=== PATIENT | male | born 1975 ===

== ENCOUNTER 2018-10-30 18:48 | Emergency (ER) | payer OTHER ==
[2018-10-30 19:04] VITALS: BP 121/73; TEMP 99; BMI 25.8
--- NOTE | 2018-10-30 19:28 | PDOC ---
History of Present Illness - General Chief Complaint: Pain Stated Complaint: ABD/PAIN/CHEST PAIN Time Seen by Provider: 10/30/18 19:26 History Source: Patient Exam Limitations: No Limitations - History of Present Illness Initial Comments: 10/30/18 19:59 Khalif Martinez is a 43M with PMH pre-DM presenting with abdominal pain radiating to L chest. Patient has had 4 days of diarrhea 10x per day with intermittent periumbilical abdominal pain he describes as a sharp squeezing pressure across belly towards the umbilicus that has gradually gotten worse. Starting yesterday pain radiated from umbilicus to L chest and pain level has sharply increased. Has no clear trigger for pain, happens randomly, has tried seltzer water, Motrin, Pepto Bismol for pain but has not improved. Denies N/V, no other chest pain, palpitations, SOB, urinary sx, headache, dizziness, weakness, numbness/ tingling. Diarrhea is liquid stool, NBNB. R-sided temporal headache. Denies cardiac history, family history of cardiac history. PMH pre-DM on 500mg metformin daily. Denies smoking, alcohol use, all illegal drug use. No abdominal surgeries. NKDA. 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 Past History - Past Medical History Allergies/Adverse Reactions: Allergies Allergy/AdvReac Type Severity Reaction Status Date / Time No Known Allergies Allergy Verified 10/30/18 19:04 Home Medications: Ambulatory Orders Amox-Tr/K Cl [Augmentin - 875Mg Tablet] 1 tab PO BID 7 Days #14 tablet 10/30/18 Ibuprofen [Advil -] 400 mg PO TID 10/30/18 Metformin HCl [Glucophage] 500 mg PO DAILY 10/30/18 COPD: No - Suicide/Smoking/Psychosocial Hx Smoking History: Never smoked Review of Systems - Review of Systems Able to Perform ROS?: Yes Is the patient limited Mongolian proficient: No Constitutional: No: Chills, Fever HEENTM: No: Symptoms Reported Respiratory: Yes: Cough (2 months). No: Shortness of Breath Cardiac (ROS): No: Chest Pain, Edema, Palpitations, Syncope ABD/GI: Yes: See HPI, Diarrhea, Other (abdominal pain). No: Constipated, Nausea , Vomiting : No: Burning, Dysuria, Discharge, Frequency, Flank Pain, Hematuria, Incontinence Musculoskeletal: Yes: Back Pain (20 year chronic disc issue) Integumentary: No: Symptoms Reported Neurological: Yes: Headache. No: Numbness, Tingling Endocrine: No: Symptoms Reported Hematologic/Lymphatic: No: Symptoms Reported All Other Systems: Reviewed and Negative *Physical Exam - Vital Signs Last Vital Signs Temp Pulse Resp BP Pulse Ox 99.0 F 95 H 18 121/73 96 10/30/18 19:00 10/30/18 19:00 10/30/18 19:00 10/30/18 19:00 10/30/18 19:00 - Physical Exam General Appearance: Yes: Nourished, Appropriately Dressed, Thin. No: Apparent Distress HEENT: positive: EOMI, PEPPER, Normal Voice, Symmetrical, Pharynx Normal. negative: Scleral Icterus (R), Scleral Icterus (L), Muffled/Hoarse voice, Pharyngeal Erythema, Tonsillar Exudate, Tonsillar Erythema, Rhinorrhea, Excessive drooling Neck: positive: Normal Thyroid, Rigid, Supple. negative: Tender, Lymphadenopathy (R), Lymphadenopathy (L) Respiratory/Chest: positive: Lungs Clear, Normal Breath Sounds. negative: Respiratory Distress, Accessory Muscle Use, Crackles, Rales, Rhonchi Cardiovascular: positive: Regular Rhythm, Regular Rate. negative: Edema, Murmur Gastrointestinal/Abdominal: positive: Normal Bowel Sounds, Flat, Soft. negative : Tender, Organomegaly, Pulsatile Mass, Guarding, Rebound Musculoskeletal: positive: Normal Inspection. negative: CVA Tenderness Extremity: positive: Normal Capillary Refill, Normal Inspection, Normal Range of Motion. negative: Tender Integumentary: positive: Normal Color Neurologic: positive: Fully Oriented, Alert, Normal Mood/Affect, Normal Response ED Treatment Course - LABORATORY CBC & Chemistry Diagram: 10/30/18 19:38 10/30/18 19:38 Medical Decision Making - Medical Decision Making 10/30/18 19:59 Khalif Martinez is a 43M with PMH pre-DM presenting with abdominal pain radiating to L chest. Patient presentation concerning for cardiac etiology vs. pancreatitis vs. AAA vs. gastroenteritis vs. renal stone. Given diarrhea likely gastroenteritis, but radiation to L chest concerning for OK vs. AAA. Will evaluate for chest pain/epigastric pain via: CMP CBC CP ECG Lipase UA/UC CXR Giving 1L NS and maalox, famotidine, protonix. 10/30/18 21:34 CXR shows no signs of PNA or PTX. UA negative for UTI, no blood. CBC WNL. Problem with CMP machine, CMP and lipase pending. Patient feels grossly well. Discussed discharge home with Augmentin, patient amenable to this plan. Pending labs and then discharge. 10/30/18 21:51 CHEM WNL. Good to discharge home. 10/30/18 22:50 Patient not feeling well, gave 2mg morphine and improved significantly. Did rapid strep which was negative since patient reported throat pain. Discharged home after this. *DC/Admit/Observation/Transfer Diagnosis at time of Disposition: Gastroenteritis Diarrhea Qualifiers: Diarrhea type: presumed infectious Qualified Code(s): R19.7 - Diarrhea, unspecified Abdominal pain Qualifiers: Abdominal location: periumbilical Qualified Code(s): R10.33 - Periumbilical pain - Discharge Dispostion Disposition: HOME Condition at time of disposition: Stable Decision to Admit order: No - Prescriptions Prescriptions: Amox-Tr/K Cl [Augmentin - 875Mg Tablet] 1 tab PO BID 7 Days #14 tablet - Referrals Referrals: Garo Joshua MD [Staff Physician] - - Patient Instructions Printed Discharge Instructions: DI for Viral Gastroenteritis -- Adult, DI for Bacterial Gastroenteritis -- Adult Additional Instructions: Today you were evaluated for pain in your belly. Your labs show that you do not have any signs of infection in your blood or urine. You also do not show any signs of heart disease and are not having a heart attack. You are likely having some food poisoning after eating bad food, and your symptoms will resolve in the next week. You do not have a pneumonia on the X-ray we obtained, and your cough is probably due to the dust at work; try to wear a mask to reduce the dust you inhale. We are sending you home with an antibiotic called Augmentin, please take one every 12 hours for the next 2 weeks. Stay hydrated and drink lots of fluids such as soups to replace the fluid lost with your diarrhea. Please buy some probiotics from the grocery store to help restore the normal bacteria to your stomach. Please follow-up with you primary doctor in the next 3 days for further care for your diarrhea and belly pain. A referral to Dr. Tres, a attendant arcade , has been included. Please make an appointment with him if your diarrhea does not improve in the next 7 days. If you experience worsening belly pain, more diarrhea, have blood in your stool, have fever, nausea, vomiting, dizziness, or any other new or concerning symptoms, please return to the closest emergency department. Print Language: [place] - Post Discharge Activity
[2018-10-30] MEDS ORDERED: SODIUM CHLORIDE 0.9% 500 ML INFUS.BAG IV ONE (19:35)
[2018-10-30 20:03] LABS: BASO % 0.7 % (0-2.0); EOS % 0.2 % (0-4.5); HEMATOCRIT 44.1 % (35.4-49); HEMOGLOBIN 14.8 GM/dL (11.7-16.9); MCH 29.9 pg (25.7-33.7); MCHC 33.6 g/dl (32.0-35.9); MEAN PLT VOLUME 9.2 fl (7.5-11.1); MONO % 9.8 % (3.8-10.2); NEUT % 77.3 % (42.8-82.8); PLATELET COUNT 258 K/MM3 (134-434); RBC 4.96 M/mm3 (4.00-5.60); RDW 14.1 % (11.9-15.9); WHITE BLOOD COUNT 9.4 K/mm3 (4.0-10.0)
[2018-10-30] MEDS ORDERED: FAMOTIDINE 20 MG/50 ML IVPB 20 MG/50 ML MG IVPB ONE ×2 (20:16→20:30)
[2018-10-30] MEDS ORDERED: MAG HYDROX/AL HYDROX/SIMETH 30 ML UNIT-DOSE CUP PO ONE (20:16)
[2018-10-30] MEDS ORDERED: MAG HYDROX/AL HYDROX/SIMETH 30 ML UNIT-DOSE CUP ONE (20:24)
[2018-10-30] MEDS ORDERED: AMPICILLIN NA/SULBACTAM NA 1.5 GM in SODIUM CHLORIDE 100 ML IVPB ONE (20:27)
--- NOTE | 2018-10-30 21:02 | PDOC ---
Documentation entered by Blane Jeff SCRIBE, acting as scribe for Billie Lopez MD. Billie Lopez MD: This documentation has been prepared by the Randee lopez Xhesika, SCRIBE, under my direction and personally reviewed by me in its entirety. I confirm that the documentation accurately reflects all work, treatment, procedures, and medical decision making performed by me. Attending Attestation - Resident Resident Name: Endy Humphrey - ED Attending Attestation I have performed the following: I have examined & evaluated the patient, The case was reviewed & discussed with the resident, I agree w/resident's findings & plan - HPI HPI: 10/30/18 20:40 The patient is a 43 year old male with a significant PMH of pre-DM who presents to the emergency department with 4 days of watery diarrhea (10 episodes ) and abdominal pain. Patient describes his abdominal pain as sharp, squeezing pressure that radiated to his L chest. Patient states he has been drinking seltzer water and taking Motrin and Pepto Bismol for pain with no relief of symptoms. Patient notes he ate halal food and quesadilla from a food truck 5 days ago. The patient denies chest pain, shortness of breath, and dizziness. Denies fever , chills, nausea, vomiting, and constipation. Denies dysuria, frequency, urgency and hematuria. Allergies: NKDA - Physicial Exam PE: 10/30/18 20:41 GENERAL: Awake, alert, and fully oriented, in no acute distress HEAD: No signs of trauma EYES: PERRLA, EOMI, sclera anicteric, conjunctiva clear ENT: Auricles normal inspection, hearing grossly normal, nares patent, oropharynx clear without exudates. Moist mucosa NECK: Normal ROM, supple, no lymphadenopathy, JVD, or masses LUNGS: Breath sounds equal, clear to auscultation bilaterally. No wheezes, and no crackles HEART: Regular rate and rhythm, normal S1 and S2, no murmurs, rubs or gallops ABDOMEN: Soft, nontender, normoactive bowel sounds. No guarding, no rebound. No masses EXTREMITIES: Normal range of motion, no edema. No clubbing or cyanosis. No cords, erythema, or tenderness NEUROLOGICAL: Cranial nerves II through XII grossly intact. Normal speech, normal gait SKIN: Warm, Dry, normal turgor, no rashes or lesions noted. - Medical Decision Making 10/30/18 20:27 Pt has diarrhea x 4 days after eating at a food tuck and eating quesadillas on the street. He works as a contruction worker. Afebrile WBC normal; exam normal. Pt afebrile. Decreased appetite, because everything runs thru ti. He will be treated with flagyl and augmentin. Follow with GI Dr. Joshua. 10/30/18 21:01 Top is normal; EKG NSR; CXR Normal. 10/30/18 21:53 chem and UA normal; pt will go home with abx. 10/30/18 22:10 Pt complains of abd pain and throat pain; we will give morphine and send a rapid strep. 10/30/18 23:08 Strep culture is still pending 10/31/18 02:58 Strep normal; pt feeling better and he will go home with augmentin Heart Score/ECG Review - ECG Intrepretation Rhythm: Regular Rhythm - [place]: Normal - P and MS Prominent R with upright T in V1 (true posterior MD): No Delta Wave(s) Present: No WPW: No - QRS Poor R Wave Progression: No Q Wave Present: No - ST and T Early Repolarization: No Non Specific ST-T Wave changes: No - ECG Impressions Normal ECG: Yes Non-specific ST Elevation: No Ischemic Changes: No
[2018-10-30 21:16] LABS: PH,URINE 5.5 (5.0-8.0); URINE APPEARANCE CLEAR; URINE BILIRUBIN NEGATIVE (NEGATIVE); URINE COLOR YELLOW; URINE GLUCOSE (UA) NEGATIVE (NEGATIVE); URINE KETONE NEGATIVE (NEGATIVE); URINE LEUK ESTERASE NEGATIVE (NEGATIVE); URINE NITRITE NEGATIVE (NEGATIVE); URINE PROTEIN NEGATIVE (NEGATIVE); URINE UROBILINOGEN 0.2 mg/dL (0.2-1.0)
[2018-10-30 21:45] LABS: ALBUMIN 3.8 g/dl (3.4-5.0); BILIRUBIN,TOTAL 0.4 mg/dL (0.2-1); BLOOD UREA NITROGEN 13.6 mg/dL (7-18); CALCIUM 8.8 mg/dL (8.5-10.1); POTASSIUM 3.7 mmol/L (3.5-5.1); TOT PROT 7.6 g/dl (6.4-8.2)
[2018-10-30] MEDS ORDERED: morphine CARPU-JECT 2 MG/1 ML DISP.SYRIN IVPUSH ONE (22:10)
[2018-10-30] MEDS ORDERED: MORPHINE SULFATE 2 MG/ML VIAL ONE (22:20)
[2018-10-30 23:35] VITALS: PULSE 68
--- NOTE | 2018-10-31 14:55 | EKG ---
Test Reason : Blood Pressure : / mmHG Vent. Rate : 092 BPM Atrial Rate : 092 BPM P-R Int : 138 ms QRS Dur : 092 ms QT Int : 352 ms P-R-T Axes : 066 073 041 degrees QTc Int : 435 ms NORMAL SINUS RHYTHM NORMAL ECG NO PREVIOUS ECGS AVAILABLE Confirmed by KRISS SÁNCHEZ, DUKE ([id number]) on 10/31/2018 2:55:07 PM Referred By: Confirmed By:DUKE MONTERROSO MD
== END 2018-10-30 23:35 | disposition home or self-care (01) ==
LOC: JER 18:48
PROC: 3E063GC Introduction of Other Therapeutic Substance into Central Artery, Percutaneous Approach (ICD-10-PCS; principal; 2018-10-30)
PROC: 3E03329 Introduction of Other Anti-infective into Peripheral Vein, Percutaneous Approach (ICD-10-PCS; 2018-10-30)
PROC: 3E03329 Introduction of Other Anti-infective into Peripheral Vein, Percutaneous Approach (ICD-10-PCS; 2018-10-30)
PROC: 3E033NZ Introduction of Analgesics, Hypnotics, Sedatives into Peripheral Vein, Percutaneous Approach (ICD-10-PCS; 2018-10-30)
DX: K52.9 Noninfective gastroenteritis and colitis, unspecified (principal)
CPT/HCPCS: 36415; 71046-TC-FY; 80053; 81003; 82550; 83690; 84484; 85025; 87070; 87086; 87880; 93005; 93010; 96365; 96367; 96375; 99283-25

== ENCOUNTER 2021-11-15 18:38 | Emergency (ER) | payer OTHER ==
[2021-11-15 18:51] VITALS: BP 171/93; PULSE 79; RESP 18; TEMP 98; BMI 27.0
[2021-11-15] MEDS ORDERED: SODIUM CHLORIDE 0.9% 500 ML INFUS.BAG IV ONE (20:00)
[2021-11-15] MEDS ORDERED: ACETAMINOPHEN 1000 MG/100 ML BAG IVPB ONE (20:00)
[2021-11-15] MEDS ORDERED: ACETAMINOPHEN INJECTION 100 ML IVPB ONE (20:05)
[2021-11-15 21:08] LABS: ALBUMIN 3.5 g/dl (3.4-5.0); BLOOD UREA NITROGEN 15.2 mg/dL (7-18); CALCIUM 8.4 mg/dL (8.5-10.1)
[2021-11-15 21:12] LABS: BILIRUBIN,TOTAL 0.2 mg/dL (0.2-1); TOT PROT 7.4 g/dl (6.4-8.2)
[2021-11-15 21:18] LABS: BASO % 0.6 % (0-2.0); EOS % 1.9 % (0-4.5); HEMOGLOBIN 14.5 GM/dL (11.7-16.9); LYMPH % 28.4 % (8-40); MCH 30.9 pg (25.7-33.7); MCHC 34.4 g/dl (32.0-35.9); MEAN CELL VOLUME 89.8 fl (80-96); MEAN PLT VOLUME 8.8 fl (7.5-11.1); MONO % 7.2 % (3.8-10.2); NEUT % 61.9 % (42.8-82.8); PLATELET COUNT 288 10^3/uL (134-434); RBC 4.67 M/mm3 (4.00-5.60); RDW 13.9 % (11.9-15.9); WHITE BLOOD COUNT 10.6 K/mm3 (4.0-10.0)
[2021-11-15 21:21] LABS: EPI CELLS 2 /uL (0-25.1); HYALINE CASTS 0 /uL (0-3.1); PH,URINE 6.5 (5.0-8.0); URINE APPEARANCE CLEAR; URINE BACTERIA 0 /uL (0-1359); URINE BILIRUBIN NEGATIVE (NEGATIVE); URINE COLOR YELLOW; URINE GLUCOSE (UA) NEGATIVE (NEGATIVE); URINE KETONE NEGATIVE (NEGATIVE); URINE LEUK ESTERASE NEGATIVE (NEGATIVE); URINE NITRITE NEGATIVE (NEGATIVE); URINE PROTEIN NEGATIVE (NEGATIVE); URINE RBC 1957 /uL (0-23.9); URINE WBC 7 /uL (0-25.8)
== END 2021-11-16 00:28 | disposition home or self-care (01) ==
LOC: JER 18:38
PROC: 3E033GC Introduction of Other Therapeutic Substance into Peripheral Vein, Percutaneous Approach (ICD-10-PCS; principal; 2021-11-15)
DX: R31.9 Hematuria, unspecified (principal); M54.9 Dorsalgia, unspecified
CPT/HCPCS: 36415; 74176-TC; 80053; 81003; 85025; 87086; 99285-25

== ENCOUNTER 2023-02-07 22:18 | Emergency (ER) | payer OTHER ==
[2023-02-07 22:30] VITALS: BP 128/70; RESP 18; BMI 20.1
[2023-02-07] MEDS ORDERED: IBUPROFEN 600 MG TABLET (FP) PO ONE ×2 (23:03→23:32)
[2023-02-08] MEDS ORDERED: predniSONE 20 MG TABLET (UD) PO ONE (00:13)
[2023-02-08] MEDS ORDERED: PENICILLIN G BENZATHINE 1,200,000 UNIT/2 ML PFS IM ONE (00:13)
[2023-02-08] MEDS ORDERED: predniSONE 20 MG TABLET (UD) ONE (00:42)
[2023-02-08 01:19] VITALS: PULSE 94; TEMP 100.2
== END 2023-02-08 01:20 | disposition home or self-care (01) ==
LOC: JER 22:18
DX: R51.9 Headache, unspecified (principal); R50.9 Fever, unspecified; J02.0 Streptococcal pharyngitis; J32.9 Chronic sinusitis, unspecified; U07.1 COVID-19
CPT/HCPCS: 0241U-QW; 70450-TC; 82962; 87651; 93005; 93010; 99285-25